=== PATIENT | male | born 1945 | race Caucasian/White ===

== ENCOUNTER → 2019-05-27 08:29 | Outpatient (BNVA) | payer MEDICARE, OTHER, SELFPAY | PROVIDERS: Family Provider Family Medicine; PCP Family Medicine; Visit Provider Urology | DX: R97.20 Elevated prostate specific antigen [PSA] (principal) | CPT/HCPCS: 81001; 84153 ==

== ENCOUNTER → 2019-11-25 08:46 | Outpatient (BNVA) | payer MEDICARE, OTHER, SELFPAY | PROVIDERS: Family Provider Family Medicine; PCP Family Medicine; Visit Provider Urology | DX: R97.20 Elevated prostate specific antigen [PSA] (principal); Z80.42 Family history of malignant neoplasm of prostate | CPT/HCPCS: 81001; 84153 ==

== ENCOUNTER → 2020-03-28 08:36 | Outpatient (BNVA) | payer MEDICARE, OTHER, SELFPAY | PROVIDERS: Family Provider Family Medicine; PCP Family Medicine; Visit Provider Urology | DX: R97.20 Elevated prostate specific antigen [PSA] (principal); Z80.42 Family history of malignant neoplasm of prostate | CPT/HCPCS: 84153 ==

== ENCOUNTER → 2020-09-26 08:08 | Outpatient (BNVA) | payer MEDICARE, OTHER, SELFPAY | PROVIDERS: Family Provider Family Medicine; PCP Family Medicine; Visit Provider Urology | DX: R97.20 Elevated prostate specific antigen [PSA] (principal); N40.0 Benign prostatic hyperplasia without lower urinary tract symptoms; Z80.42 Family history of malignant neoplasm of prostate | CPT/HCPCS: 81003; 84153 ==

== ENCOUNTER → 2021-03-28 08:37 | Outpatient (BNVA) | payer MEDICARE, OTHER, SELFPAY | PROVIDERS: Family Provider Family Medicine; PCP Family Medicine; Visit Provider Urology | DX: R97.20 Elevated prostate specific antigen [PSA] (principal); Z80.42 Family history of malignant neoplasm of prostate | CPT/HCPCS: 81003; 84153 ==

== ENCOUNTER 2021-10-10 07:27 | Outpatient (CLI) | payer MEDICARE, OTHER, SELFPAY | END 2021-10-10 07:28 | disposition home or self-care (01) | LOC: LAB 07:30 | PROVIDERS: PCP Family Medicine; Visit Provider Urology | DX: R97.20 Elevated prostate specific antigen [PSA] (principal); N20.9 Urinary calculus, unspecified; Z80.42 Family history of malignant neoplasm of prostate | CPT/HCPCS: 81003; 84153; 99213 ==

== ENCOUNTER 2022-02-26 07:40 | Outpatient (CLI) | payer MEDICARE, OTHER, SELFPAY ==
--- NOTE | 2022-02-26 07:59 | XR_ITS ---
WS: [id number] Right knee, 3 views, 02/26/2022 Clinical Data: OSTEOARTHRITIS OF R KNEE Comparison: None. Findings: No fractures or dislocations are seen. There is osteoarthritic narrowing of the medial joint compartm ent with spurring of the medial femoral condyle and medial tibial plateau. The posterior patella show s spurring.. The soft tissues are unremarkable. XR/XR knee RT 3V* [id number] Impression: Mild osteoarthritis of the right knee Kellgren-Doni Classification: grade 2 (minimal): definite osteophytes and p ossible joint space narrowing
== END 2022-02-26 07:41 | disposition home or self-care (01) ==
LOC: RAD 07:48
PROVIDERS: PCP Family Medicine; Visit Provider Family Medicine
DX: M17.10 Unilateral primary osteoarthritis, unspecified knee (principal)
CPT/HCPCS: 73562

== ENCOUNTER → 2022-04-17 08:10 | Outpatient (BNVA) | payer MEDICARE, OTHER, SELFPAY | PROVIDERS: PCP Family Medicine; Visit Provider Urology | DX: N20.9 Urinary calculus, unspecified (principal); R97.20 Elevated prostate specific antigen [PSA]; Z80.42 Family history of malignant neoplasm of prostate | CPT/HCPCS: 81003; 99213 ==

== ENCOUNTER 2022-06-12 14:08 | Outpatient (CLI) | payer MEDICARE, OTHER, SELFPAY ==
--- NOTE | 2022-06-12 14:57 | XR_ITS ---
WS: [id number] Exam: XR ankle RT min 3V* [id number] Date/Time of Exam: 06/12/2022 3:05 PM Reason For Exam: PAIN IN RIGHT ANKLE AND JOINTS OF RIGHT FOOT No fracture or dislocation. Soft tissue swelling about the ankle. The ankle mortise is well-maintaine d. XR/XR ankle RT min 3V* [id number] IMPRESSION: 1. No fracture or dislocation. Soft tissue swelling.
== END 2022-06-12 14:09 | disposition home or self-care (01) ==
PROVIDERS: PCP Family Medicine; Visit Provider Family Medicine
DX: M25.571 Pain in right ankle and joints of right foot (principal)
CPT/HCPCS: 73610

== ENCOUNTER 2022-09-01 20:06 | Emergency (ER) | payer MEDICARE, OTHER, SELFPAY ==
[2022-09-01] VITALS (7 sets, daily range): BP systolic 131–157; BP diastolic 88–110; PULSE 76–86; RESP 10–31; TEMP 36.7; O2SAT 91–96
--- NOTE | 2022-09-01 20:18 | ECG_ITS ---
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 Measurements Intervals [place] Rate: 88 P: 0 GA: 0 QRS: 2 QRSD: 83 T: 65 QT: 356 QTc: 433 Interpretive Statements ATRIAL FIBRILLATION ABNORMAL RHYTHM ECG Compared to ECG 08/26/2018 14:56:37 Sinus rhythm no longer present Electronically Signed On 09-02-2022 21:05:33 CDT by Lea Worthington M.D. [id number]
--- NOTE | 2022-09-01 20:20 | XRR_ITS ---
PROCEDURE INFORMATION: Exam: XR Chest Exam date and time: 09/01/2022 8:36 PM Age: 76 years old Clinical indication: Pain; Chest pressure; Additional info: Cp TECHNIQUE: Imaging protocol: Radiologic exam of the chest. Views: 1 view. COMPARISON: No relevant prior studies available. FINDINGS: Lungs: No CHF/pulmonary edema. Visible lungs appear essentially clear. Pleural spaces: No visible pneumothorax. No definite pleural fluid. Heart/Mediastinum: Heart size is within normal limits. Bones/joints: No significant acute finding. XR/XR chest 1V portable [id number] IMPRESSION: 1. No definite CHF or pneumonia. 2. Other findings discussed above.
[2022-09-01 20:26] LABS: Basophils % 0.6 %; Eosinophils # 0.3 10^3/uL (0.0-0.8); Eosinophils % 4.1 %; Hematocrit 48.6 % (42.0-52.0); Hemoglobin 16.1 g/dL (11.7-16.6); Lymphocytes # 2.6 10^3/uL (0.8-4.8); Lymphocytes % 37.8 %; Mean Corpuscular HGB Conc 33.1 g/dL (30.0-36.0); Mean Corpuscular Hemoglobin 28.8 pg (28.0-34.0); Mean Corpuscular Volume 86.9 fl (80-94); Mean Platelet Volume 10.1 fL (7.4-10.4); Monocytes # 0.7 10^3/uL (0.2-0.9); Monocytes % 10.8 %; Neutrophils % 46.6 %; Nucleated Red Blood Cells % 0 %; Platelet Count 262 10^3/cmm (130-400); Red Blood Count 5.59 10^6/uL (4.1-5.3); Red Cell Distribution Width 13.1 % (12.1-15.1); White Blood Count 6.9 10^3/uL (4.0-10.0)
[2022-09-01 20:37] LABS: INR 0.95 (0.8-1.2)
[2022-09-01 20:38] LABS: Partial Thromboplastin Time 26.5 SECONDS (23.9-36.7)
[2022-09-01 20:44] LABS: Troponin(5th) Baseline 15 ng/L (0-15)
--- NOTE | 2022-09-01 20:51 | W.ED.CHESTPA ---
HPI - Chest Pain General: Chief Complaint: Chest Pain Stated Complaint: Cp, SOB Time Seen by Provider: 09/01/22 20:12 Source: patient and family History of Present Illness: 76-year-old gentleman diagnosed on Saturday with atrial fibrillation for the first time. He presents with chest discomfort, mainly a pressure to his chest on and off, that seems to worsen with exertion. He however developed chest discomfort today without exertion. It is gone now. He gets short of breath with exertion as well. He was placed on a full dose aspirin and metoprolol by his PCP, has a stress test set up for the first week of September, and cardiology follow-up the second week of September scheduled. MD complaint: chest discomfort Pertinent past history: other Onset (ago): hour(s) Timing of current episode: episodic Prior episodes: Yes Onset: during rest and during exertion Pain location: substernal Pain radiation: none Quality: heaviness Relieving factors: nothing Exacerbating factors: exertion Associated symptoms: Reports dyspnea, leg edema and palpitations; Deny abdominal pain, diaphoresis, fever(s), nausea or vomiting Treatment prior to arrival: none Review of Systems Const: Denies: fever(s) or diaphoresis ENMT: Denies: throat pain Card: Reports: chest pain, palpitations and irregular heart rhythm Resp: Reports: dyspnea GI: Reports: bloating and belching; Denies: abdominal pain, nausea or vomiting Neuro: Denies: headache(s) PFS ED PFSH: Medical History 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/LUTS Elevated PSA Family history of prostate cancer History of kidney stones Urolithiasis Surgical History History of vasectomy Family History Father , AT AGE 90 Pneumonia Prostate cancer Mother , AT AGE 89 Stroke Social History Smoking and tobacco status: former smoker Alcohol intake: never Marital status: Current occupational status: employed and other Details: EQUIPMENT ENGINEERING TECHNICIAN Physical Exam Const: COMMON NORMALS: no acute distress GENERAL APPEARANCE: cooperative; not ill appearing and not frail appearing HENMT: COMMON NORMALS: normocephalic, atraumatic and Normal external nose present HEAD & SCALP: normocephalic and atraumatic FACE & SINUS: normal facial exam and face symmetric NOSE: Normal external nose present Eye: COMMON NORMALS: Equal, round and reactive pupils present and EOMs intact bilaterally PUPIL: Yes Equal, round and reactive pupils present Neck/C-Spine: GENERAL: Yes trachea midline Chest: CHEST: Yes Symmetrical chest wall rise Resp: COMMON NORMALS: normal respiratory effort, No retractions, No use of accessory muscles and clear to auscultation bilaterally AUSCULTATION: clear to auscultation bilaterally Cardio: COMMON NORMALS: regular rate RATE: regular rate RHYTHM: abnormal rhythm irregularly irregular GI: COMMON NORMALS: Normal to inspection, nondistended, normoactive bowel sounds present Extremity: NARRATIVE EXTREMITY EXAM: bilateral 1+ edema Neuro: JANIA COMA SCALE: document GCS findings [place] coma scale eye opening: Spontaneous Jania coma scale verbal response: Orientated [place] coma scale motor response: Obey commands [place] coma scale total score: 15 SENSORY EXAM: Yes extremities (intact) Psych: COMMON NORMALS: speech normal SPEECH: Yes normal speech Skin: COMMON NORMALS: no rashes or lesions noted GENERAL SKIN EXAM: no rashes or lesions noted Course Vital Signs: Vital signs: Vital Signs Temperature 98.1 F 09/01/22 20:11 Pulse Rate 76 09/01/22 23:45 Respiratory Rate 26 H 09/01/22 23:45 Blood Pressure 144/103 09/01/22 23:45 Pulse Oximetry 92 09/01/22 23:45 Oxygen Delivery Me thod Room Air 09/01/22 20:11 MDM - Chest Pain Medical Decision Making He is to [id number] gentleman with a history of recently diagnosed atrial fibrillation. He presents with chest discomfort. He notes significant improvement following GI cocktail. His CBC is normal. His BMP is not remarkable. Chest x-ray is negative for acute findings. His first troponin is 15 and stayed stable at 2 hours. His BNP is 184. TSH is normal. Potassium is 3.9. He has resolved symptoms. His rate is controlled essentially, although he is mildly hypertensive. We will have him go up to 50 mg twice daily on the metoprolol for blood pressure and heart rate. Both twice daily. Follow-up with his doctor. To return for any return of symptoms. Lab Data 09/01/22 20:22 09/01/22 20:22 Radiology Impressions Chest X-Ray 09/01/22 20:20 IMPRESSION: 1. No definite CHF or pneumonia. 2. Other findings discussed above. Laboratory Results WBC 6.9 10^3/uL (4.0-10.0) 09/01/22 20: RBC 5.59 10^6/uL (4.1-5.3) H 09/01/22 20: Hgb 16.1 g/dL (11.7-16.6) 09/01/22 20: Hct 48.6 % (42.0-52.0) 09/01/22 20: MCV 86.9 fl (80-94) 09/01/22 20: MCH 28.8 pg (28.0-34.0) 09/01/22 20: MCHC 33.1 g/dL (30.0-36.0) 09/01/22: RDW 13.1 % (12.1-15.1) 09/01/22: Plt Count 262 10^3/cmm (130-400) 09/01/22 20: MPV 10.1 fL (7.4-10.4) 09/01/22 20: Neut % (Auto) 46.6 % 09/01/22 20: Lymph % (Auto) 37.8 % 09/01/22 20: Barton % (Auto) 10.8 % 09/01/22 20: Eos % (Auto) 4.1 % 09/01/22: Baso % (Auto) 0.6 % 09/01/22: Neut # (Auto) 3.20 10^3/uL (1.8-7.7) 09/01/22 20: Lymph # (Auto) 2.6 10^3/uL (0.8-4.8) 09/01/22: Barton # (Auto) 0.7 10^3/uL (0.2-0.9) 09/01/22 20: Eos # (Auto) 0.3 10^3/uL (0.0-0.8) 09/01/22: Baso # (Auto) 0.0 10^3/uL (0.0-0.1) 09/01/22 20:22 Nucleated RBC % (auto) 0 % 09/01/22 20: Nucleated RBCs # 0.0 /100WBC 09/01/22 20: PT 13.00 SECONDS (12.1-14.9) 09/01/22 20:22 INR 0.95 (0.8-1.2) 09/01/22 20: APTT 26.5 SECONDS (23.9-36.7) 09/01/22 20:22 Sodium 137 mmol/L (136-145) 09/01/22 20:22 Potassium 3.9 mmol/L (3.5-5.1) 09/01/22 20: Chloride 101 mmol/L (98-107) 09/01/22 20: Carbon Dioxide 26 mmol/L (22-29) 09/01/22 20: Anion Gap 13.9 (5-19) 09/01/22 20: BUN 16 mg/dL (8-23) 09/01/22 20: Creatinine 1.0 mg/dL (0.7-1.2) 09/01/22 20: GFR Calculation Not Reportable 09/01/22 20: Glucose 119 mg/dL (65-115) H 09/01/22 20: Calculated Osmolality 286 mOsm/kg (285-295) 09/01/22 20: Calcium 9.1 mg/dL (8.5-10.5) 09/01/22 20: Total Bilirubin 0.4 mg/dL (0.15-1.2) 09/01/22 20: AST 15 U/L (0-40) 09/01/22 20: ALT 20 U/L (0-41) 09/01/22 20:22 Alkaline Phosphatase 62 U/L (40-130) 09/01/22 20:22 Troponin T Baseline 15 ng/L (0-15) 09/01/22 20: Troponin T 120 Minute 14.06 ng/L (0-15) 09/01/22 22:15 Delta Troponin T -0.94 ABS# (0-10) L 09/01/22 22:15 NT-Pro-B Natriuret Pep 184 pg/mL (0-125) H 09/01/22 20:22 Total Protein 6.5 g/dL (6.6-8.7) L 09/01/22 20:22 Albumin 4.0 g/dL (3.5-5.2) 09/01/22 20:22 Globulin 2.5 g/dL (1.3-4.6) 09/01/22 20:22 TSH 1.34 uIU/mL (0.27-4.20) 09/01/22 20:22 Discharge Plan Discharge Patient Disposition: Home Clinical Impression: Atrial fibrillation, Chest discomfort Condition: Stable Prescriptions: New metoprolol tartrate 50 mg tablet 50 mg PO BID Qty: 60 0RF No Action naproxen sodium [Aleve] 220 mg tablet 220 mg PO Q8H PRN [facility] 750 mg-100 mg- 1.65 mg-108 mg tablet PO omeprazole 20 mg capsule,delayed release(DR/EC) 20 mg PO DAILY sildenafil 100 mg tablet 100 mg PO DAILY PRN Discharge Orders: Discharge ED (Routine); Ordered 09/01/22 Ordered By: Jerrell Mendiola Referrals: Diya Kim MD [Primary Care Provider] - 4-7 days Patient Instructions: A-fib (Atrial Fibrillation) (ED) Activity Restrictions/Additional Instructions: Continue full dose (325 mg) aspirin daily. Increase your metoprolol to 50 mg twice daily instead of 25 mg. Check your blood pressure and heart rate twice daily. If heart rate is consistently below 65, or blood pressure is below 100 systolic (the top number), decrease the metoprolol back down to 25 mg twice daily. Call your doctor on Saturday, let them know you were seen here. They may wish to see you. Return for worsening discomfort despite treatment, worsening shortness of breath despite treatment, other concerning symptoms. Simethicone, and topd-nne-vbblqbp gas medication, may help your indigestion symptoms. Coding Level of Care Code ED Shipyard Painting Supervisor for Teresa Linda
[2022-09-01 20:54] LABS: Alanine Aminotransferase 20 U/L (0-41); Alkaline Phosphatase 62 U/L (40-130); Aspartate Amino Transferase 15 U/L (0-40); Blood Urea Nitrogen 16 mg/dL (8-23); Calcium 9.1 mg/dL (8.5-10.5); Carbon Dioxide 26 mmol/L (22-29); Chloride 101 mmol/L (98-107); Globulin 2.5 g/dL (1.3-4.6); Glucose 119 mg/dL (65-115); NT Pro B Type Natriuretic Pept 184 pg/mL (0-125); Osmolality Calculated 286 mOsm/kg (285-295); Sodium 137 mmol/L (136-145); Total Bilirubin 0.4 mg/dL (0.15-1.2); Total Protein 6.5 g/dL (6.6-8.7)
[2022-09-01 20:55] LABS: Anion Gap 13.9 (5-19); Potassium 3.9 mmol/L (3.5-5.1)
[2022-09-01] MEDS: lidocaine 2% viscous 15 ML, aluminum-mag hydrox-simethicon 30 ML, sucralfate oral liq 1 GM PO (21:15)
[2022-09-01 21:57] LABS: Thyroid Stimulating Hormone 1.34 uIU/mL (0.27-4.20)
--- NOTE | 2022-09-01 22:19 | ECG_ITS ---
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 Measurements Intervals [place] Rate: 78 P: 0 ME: 0 QRS: -24 QRSD: 96 T: 48 QT: 386 QTc: 442 Interpretive Statements ATRIAL FIBRILLATION BORDERLINE LEFT AXIS DEVIATION [QRS AXIS < -20] ABNORMAL RHYTHM ECG Compared to ECG 09/01/2022 20:18:34 No significant changes Electronically Signed On 09-02-2022 21:18:28 CDT by Lea Worthington M.D. [id number]
[2022-09-01 22:47] LABS: Troponin 5 2HR 14.06 ng/L (0-15)
[2022-09-01 22:54] LABS: Troponin 5 2HR Delta -0.94 ABS# (0-10)
== END 2022-09-01 23:53 | disposition home or self-care (01) ==
PROVIDERS: Emergency Provider Emergency Medicine; PCP Family Medicine
DX: R07.89 Other chest pain (principal); I48.91 Unspecified atrial fibrillation; Z87.891 Personal history of nicotine dependence
CPT/HCPCS: 71045; 80053; 83880; 84443; 84484; 85025; 85610; 85730; 93005; 99285

== ENCOUNTER 2022-09-26 08:49 | Outpatient (CLI) | payer MEDICARE, OTHER, SELFPAY ==
[2022-09-26 09:13] VITALS: BMI 32.1
--- NOTE | 2022-09-26 09:45 | ECG_ITS ---
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 Interpretive Statements NAME OF STUDY: LEXISCAN SESTAMIBI STRESS TEST INDICATION: [afib, ] Procedure: At the baseline, the blood pressure was 147/96 mmHg with a heart rate of 79 bpm. The electrocardiogram showed atrial fibrillation. The Lexiscan was infused over a period of 20 seconds. A total of 0.4 mg of Lexiscan was infused. The stress phase was continued for a total of 5 minutes. Heart rate was at the end of stress phase was 129 bpm and a blood pressure of 136/89 mmHg. The EKG at the peak infusion revealed atrial fibrillation with no significant ST-T wave changes. Sestamibi was injected 20 seconds after the Lexiscan infusion. Blood pressure at the end of recovery phase was 150/87 mmHg with a heart rate of 110 bpm. Conclusion: 1. Normal EKG response to Lexiscan infusion 2. No Lexiscan induced chest pain or cardiac arrhythmia. 3. Normal blood pressure and heart rate response. 4. Sestamibi/sestamibi perfusion scan pending; see separate report. Electronically Signed On 10-09-2022 17:46:18 CDT by Johnny Chavarria M.D. [id number]
--- NOTE | 2022-09-26 09:46 | NMCV_ITS ---
NM chaka perf SPECT r/s* [id number] Ajay Barnett Age: 76 Gender: M : 1945 Exam Date: 09/26/2022 09:46 Ordering Phys: Diya Kim MD Technologist: MARIN iPzano Exam Location: [facility] Indications: AFIB STRESS TEST [facility] IMAGE PROTOCOL Rest/Stress 1 Lexiscan Day Radiopharmaceutical Dose (mCi) Administration Site Administered by Rest: Tc-99m 10.5 IV MARIN Castellanos Sestamibi Stress:Tc-99m 32.9 IV MARIN Castellanos Sestamibi Rest: 26-Sep-2022 60 Discovery 630 Stress: 26-Sep-2022 30 Discovery 630 0.4mg Lexiscan. Supine position only as patient was unable to lay prone. SPECT RESULTS Technical Quality: Excellent Raw Data Analysis: Normal Image Corrections: No attenuation or motion correction applied Summed Stress Score: 2 Summed Rest Score: 1 Summed Difference Score: 2 PERFUSION FINDINGS Small sized, reversible perfusion defect noted in the inferolateral wall. This is consistent with small sized area of ischemia in the left circumflex artery territory. FUNCTIONAL RESULTS (calculated via Gated SPECT) Stress Image LV EF (%): 67 Stress EDV (mL):73 TID: 1.04 Stress ESV (mL):24 FUNCTIONAL FINDINGS: There is normal left ventricular systolic function. IMPRESSIONS 1. Small sized area of ischemia in the left circumflex artery territory. 2. LV systolic function is normal Johnny Chavarria MD (Electronically Signed) Final Date: 29 September 2022 10:35 S
--- NOTE | 2022-09-26 11:12 | PC.NURSE ---
pt is currently in afib with sporadic RVR. nurse called and order was verbally changed to chemical stress test.
[2022-09-26] MEDS: regadenoson 0.4 Mg/5 ml Syringe IVP (11:17)
[2022-09-26 11:28] VITALS: BP 150/87; PULSE 106
== END 2022-09-26 08:50 | disposition home or self-care (01) ==
LOC: CDL 08:50
PROVIDERS: PCP Family Medicine; Visit Provider Family Medicine
DX: R07.9 Chest pain, unspecified (principal); I25.9 Chronic ischemic heart disease, unspecified; I48.91 Unspecified atrial fibrillation
CPT/HCPCS: 36415; 78452; 93017; 96374; A9500; J2785

== ENCOUNTER 2022-09-26 09:34 | Outpatient (CLI) | payer MEDICARE, OTHER, SELFPAY ==
[2022-09-26 10:16] LABS: Prostate Specific AG Urology 10.72 ng/mL (0-4)
== END 2022-09-26 09:35 | disposition home or self-care (01) ==
LOC: LAB 09:34
PROVIDERS: PCP Family Medicine; Visit Provider Urology
DX: R97.20 Elevated prostate specific antigen [PSA] (principal)
CPT/HCPCS: 84153

== ENCOUNTER → 2022-10-02 07:45 | Outpatient (BNVA) | payer MEDICARE, OTHER, SELFPAY | PROVIDERS: PCP Family Medicine; Visit Provider Urology | DX: N20.9 Urinary calculus, unspecified (principal); R97.20 Elevated prostate specific antigen [PSA]; Z80.42 Family history of malignant neoplasm of prostate; I48.91 Unspecified atrial fibrillation | CPT/HCPCS: 81003; 99213 ==

== ENCOUNTER → 2022-11-07 14:08 | Outpatient (BNVA) | payer MEDICARE, OTHER, SELFPAY | PROVIDERS: PCP Family Medicine; Visit Provider Internal Medicine Cardiovascular Disease | DX: R94.39 Abnormal result of other cardiovascular function study (principal); I48.20 Chronic atrial fibrillation, unspecified; R06.02 Shortness of breath; R07.89 Other chest pain; R53.1 Weakness; Z87.891 Personal history of nicotine dependence; I12.9 Hypertensive chronic kidney disease with stage 1 through stage 4 chronic kidney disease, or unspecified chronic kidney disease; N18.9 Chronic kidney disease, unspecified; Z79.01 Long term (current) use of anticoagulants | CPT/HCPCS: 36415; 80053; 83880; 84443; 85025; 85610; 99204 ==

== ENCOUNTER 2022-11-15 08:22 | Outpatient (CLI) | payer MEDICARE, OTHER, SELFPAY ==
--- NOTE | 2022-11-15 08:45 | USCV_ITS ---
Ajay Barnett Age: 77 Gender: M : 1945 Exam Date: 11/15/2022 08:40 Ordering Phys: Lea Worthington MD ([email or web address]) Technologist: EVENS Exam Location: [facility] [place] Indication: A FIB, SHORTNESS OF BREATH BP: 114 / 80 HR: 95 Rhythm: Sinus Technical Quality: Adequate MEASUREMENTS (Male / Female) Normal Values 2D ECHO LVOT Diameter 2.0 cm LV Ejection Fraction MOD 2C 69.4 % LV Ejection Fraction 2C AL 71.0 % LA Diameter 3.5 cm LA Width 3.7 cm LA Height 4.9 cm RA Width 3.0 cm RA Height 4.8 cm Aorta at Sinotubular Diameter 2.3 cm IVC Diameter 1.5 cm M-MODE Aortic Annulus Diameter 2.5 cm LA Ao Ratio MM 1.3 MV E Point Septal Separation 0.5 cm DOPPLER AV Peak Velocity 129.0 cm/s LVOT Peak Velocity 97.0 cm/s AV Area Cont Eq vti 2.7 cm squared AV Area Cont Eq pk 2.4 cm squared MV Peak Velocity 108.0 cm/s MV Area PHT 4.8 cm squared MV E' Velocity 56.5 cm/s Mitral E to MV E' Ratio 6.6 Mitral E to LV E' Lateral Ratio 6.1 Mitral E to LV E' Septal Ratio 7.2 TR Peak Velocity 191.9 cm/s TR Peak Gradient 14.7 mmHg TR Mean Velocity 126.5 cm/s TR Mean Gradient 8.3 mmHg TR Velocity Time Integral 44.3 cm TV Peak E Velocity 52.0 cm/s Right Atrial Pressure 3.0 mmHg Pulmonary Artery Systolic Pressu 17.7 mmHg PV Peak Velocity 119.0 cm/s RV Acceleration Time 0.1 s RV Ejection Time 0.2 s RV AcT/ET 0.4 FINDINGS Left Ventricle Normal left ventricular size and systolic function, EF 68 %. Mild left ventricular hypertrophy. No regional wall motion abnormalities. Right Ventricle Upper limit of normal size Right Atrium The right atrium is normal in size. Left Atrium Upper limit of normal size . Mitral Valve Mild mitral valve regurgitation. Aortic Valve Structurally normal aortic valve without significant sclerosis or stenosis. There is no aortic regurgitation. Tricuspid Valve Trace tricuspid valve regurgitation. Pulmonic Valve Trace pulmonary valve regurgitation. Pericardium Normal pericardium without effusion. Aorta Normal ascending aorta dimension. IVC Normal inferior vena cava. CONCLUSIONS Normal left ventricular size and systolic function, EF 68 %. Mild left ventricular hypertrophy. No regional wall motion abnormalities. Both atria, upper limit of normal size. Mild mitral valve regurgitation. Trace tricuspid valve regurgitation. Trace pulmonary valve regurgitation. There is no pericardial effusion. There are no intracardiac masses. No similar previous studies are available for comparison Dr Lea Worthington MD FACC (Electronically Signed) Final Date: 16 November 2022 10:13 S
== END 2022-11-15 08:23 | disposition home or self-care (01) ==
LOC: RAD 08:23
PROVIDERS: PCP Family Medicine; Visit Provider Internal Medicine Cardiovascular Disease
DX: I48.20 Chronic atrial fibrillation, unspecified (principal); R06.02 Shortness of breath; I51.7 Cardiomegaly; I34.0 Nonrheumatic mitral (valve) insufficiency
CPT/HCPCS: 93306